=== PATIENT | female | born 1975 | race Caucasian/White ===

== ENCOUNTER 2021-05-02 18:54 | Emergency (ER) | payer BC, MEDICAID ==
[~2021-05-02] VITALS: Ht 165.1 cm; Wt 69.9 kg
--- NOTE | 2021-05-02 20:27 | NUR ---
[facility], ON AMOX ATB C/O WORSENING SORE THROAT. PATINET IS A/O X 4, RR EVEN AND UNLABORED, NO SIGNS OF SOB NOTED. PATIENT CONNECTED TO [facility].
[2021-05-02] MEDS ORDERED: KETOROLAC TROMETHAMINE INJ 30 MG/ML VIAL IV ONE (20:30)
[2021-05-02] MEDS ORDERED: IV NS 0.9% 1,000 ML BAG IV ONE (20:30)
[2021-05-02 20:41] LABS: BASOPHILS # (AUTO) 0.1 K/uL (0.0-0.2); BASOPHILS % (AUTO) 0.4 % (0.0-2.0); EOSINOPHILS % (AUTO) 0.1 % (0.0-6.0); HEMATOCRIT 39 % (33-45); HEMOGLOBIN 12.5 g/dL (11.5-14.8); LYMPHOCYTES # (AUTO) 1.3 K/uL (0.8-4.8); LYMPHOCYTES % (AUTO) 7.8 % (20.0-44.0); MEAN CORPUSCULAR HGB CONC 32 g/dl (31.0-36.0); MEAN CORPUSCULAR VOLUME 89 fL (82-100); MONOCYTES # (AUTO) 1.3 K/uL (0.1-1.30); MONOCYTES % (AUTO) 7.7 % (2.0-12.0); NEUTROPHILS # (AUTO) 14.3 K/uL (1.8-8.9); PLATELET COUNT (AUTO) 434 K/uL (150-450); RED BLOOD CELL COUNT(AUTO) 4.36 MIL/uL (4.0-5.2)
[2021-05-02] MEDS ORDERED: KETOROLAC TROMETHAMINE 15 MG/ML VIAL ONE (20:47)
[2021-05-02 21:16] LABS: CALCIUM, SERUM 8.5 mg/dL (8.5-10.1); CREATININE 0.9 mg/dL (0.6-1.3)
--- NOTE | 2021-05-02 21:20 | NUR ---
COVID AND STREP SWAB COLLECTED AND SENT TO LAB
[2021-05-02 22:28] LABS: MONOTEST NEGATIVE (NEGATIVE)
--- NOTE | 2021-05-02 22:32 | NUR ---
RAD AT BEDSIDE
[2021-05-02] MEDS ORDERED: IOHEXOL-300 100 ML VIAL IV ONE (22:38)
[2021-05-02] MEDS ORDERED: IV NS 0.9% 250 ML IV ONE (22:38)
--- NOTE | 2021-05-02 22:53 | NUR ---
PATIENT TAKEN TO CT
--- NOTE | 2021-05-02 23:41 | NUR ---
URINE COLLECTED AND SENT TO LAB
[2021-05-03 00:04] VITALS: BP 112/64
--- NOTE | 2021-05-03 00:20 | NUR ---
Patient discharged to home in stable condition. Written and verbal after care instructions given. Patient verbalizes understanding of instruction.
[2021-05-03 00:54] LABS: BILIRUBIN,URINE NEGATIVE (NEGATIVE); COLOR,URINE YELLOW (YELLOW); LEUKOCYTE ESTERASE ,URINE NEGATIVE (NEGATIVE); NITRITE, URINE NEGATIVE (NEGATIVE); PH,URINE 7.5 (5.0-8.0); PROTEIN,URINE NEGATIVE (NEGATIVE); UGLUCOSE NEGATIVE (NEGATIVE); UROBILINOGEN,URINE 0.2 EU/dL (0.2)
[2021-05-03 01:05] LABS: BACTERIA,URINE None seen /HPF (None Seen); SQUAMOUS EPITHELIAL CELL,UR Many /HPF (None Seen)
== END 2021-05-03 00:21 | disposition home or self-care (01) ==
LOC: ER 18:54
DX: J02.9 Acute pharyngitis, unspecified (principal); R00.0 Tachycardia, unspecified; R51.9 Headache, unspecified; R50.9 Fever, unspecified; Z20.822 Contact with and (suspected) exposure to COVID-19
CPT/HCPCS: 36415; 70491; 71045; 80048; 81001; 84702; 84703; 85025; 86308; 87070; 87426; 87880; 93005; 96361; 96374; 99285; J1885; J7050; Q9967; U0003; 86403-TC